=== PATIENT | female | born 1940 | race Caucasian/White ===

== ENCOUNTER 2016-08-29 14:37 | Inpatient (IN) | payer MEDICARE, OTHER ==
--- NOTE | ~2016-08-29 | CN ---
Consultation Report [place] [id number] [facility] [place]. [address] NAME: VIRGEN PEREZ : 39 STATUS : ADM Zohaib PAT#: [id number] AGE: 76 ADM/REG DATE : 08/29/16 MR#: [id number] REPORT SERV DATE: 08/30/16 DICTATED BY: EDDIEMONICATIERRA STRATTON DATE: 08/30/16 REPORT STATUS : Draft TRANSCRIBED BY: MODL DATE: 08/30/16 CONSULTATION REPORT DATE OF CONSULTATION: 08/29/2016 REASON FOR CONSULTATION: Consulted for COPD management. IDENTIFYING DATA: 1. Primary care physician: Justine Nolan M.D. 2. Urologist: Nilo oMntalvo Jr., M.D. 3. Substation Designer: Andrew Garcia M.D. 4. Orthopedist: Aleksey Price II, M.D. 5. Surgeon in the past who did her thyroid surgery: Red Felix M.D. HISTORY OF PRESENT ILLNESS: This is a 76-year-old female admitted by Dr. Andrew Garcia for acute coronary syndrome. The patient has a history of coronary artery disease with previous percutaneous intervention as well as peripheral vascular disease, having a right carotid endarterectomy. She also has a history of hypertension, and hyperlipidemia, and the hospitalist group is presently consulted for COPD management. The patient denies a personal history of having a diagnosis of COPD, even though she does relate that she has episodes of bronchitis. The patient presently is admitted under Cardiology for chest pain. The patient does have expiratory wheezing noted bilaterally, but she denies that she is having any chest pain presently, and she is denying shortness of breath. The patient's history was obtained through interview with the patient and her daughter is well as review of [employer]. PAST MEDICAL HISTORY: 1. Presbyopia. 2. Arthritis. 3. Degenerative disk disease. 4. Anxiety. 5. Depression. 6. Chronic back pain. 7. Peripheral vascular disease. 8. Hypertension. 9. Hyperlipidemia. 10.COPD for which the patient denies. She does have chronic tobacco abuse. 11.Bronchitis. 12.Chest pain. 13.Allergies with sinus congestion. HOME MEDICATIONS: 1. Enteric coated aspirin 81 mg p.o. every morning. Consultation Report [place] [id number] [facility] [place]. [address] NAME: VIRGEN PEREZ : 39 STATUS : ADM Zohaib PAT#: [id number] AGE: 76 ADM/REG DATE : 08/29/16 MR#: [id number] REPORT SERV DATE: 08/30/16 DICTATED BY: MONICA MORGAN DATE: 08/30/16 REPORT STATUS : Draft TRANSCRIBED BY: CLEMENTINE DATE: 08/30/16 2. Celexa 20 mg p.o. daily. 3. Flexeril 10 mg p.o. twice a day. 4. Folic acid 800 mcg p.o. daily. 5. Neurontin 300 mg p.o. three times daily. 6. Everest 5/325 one tablet p.o. every eight hours p.r.n. back pain. 7. Afrin nasal spray, 2 to 3 sprays nasally every 12 hours p.r.n. congestion. 8. Crestor 20 mg p.o. at bedtime. 9. Salonpas patch topically over the counter p.r.n. for back and leg pain. 10.Aspercreme one application topically p.r.n. to hands, leg, and for back pain. ALLERGIES: TO EMILY INHIBITORS WHICH CAUSES HER TO HAVE COUGH. SOCIAL HISTORY: The patient is a smoker, she is still smoking after 30 years, presently one- half pack per day. 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 She lives in a single-level home. No alcohol or illicit drug use. No activity intolerance according to patient. The patient is for 59 years. FAMILY HISTORY: The patient had three brothers, one brother is from an [place], the other brother is alive and well. The patient's family is positive for breast cancer, lung cancer, coronary artery disease. Her mother was from these comorbidities in her 80s. Her father from an aneurysm and had coronary artery disease and at approximately age 8282 years old. The patient has two children alive and well. SURGICAL HISTORY: 1. Bilateral carotid endarterectomy. 2. A cyst removed from her hand. 3. Previous shoulder surgery. 4. Thyroidectomy. 5. PTCI. 6. Intraocular lens implant. 7. Hysterectomy. 8. Bladder sling on 05/19/2009. 9. Echo that was done on 04/2016 with LVEF 45% with a grade 1 diastolic dysfunction. 10.Remote RCA stent. REVIEW OF SYSTEMS: A full 10-point review of systems obtained, pertinent positives are mentioned in the HPI. The patient is presently alert and oriented x3. She has no nausea and vomiting. No abdominal pain. Has no chest pain. Has no fever. Denies shortness of breath. Has no confusion or agitation. PHYSICAL EXAMINATION: VITAL SIGNS: From today, blood pressure 137/63, respiratory rate 18, heart rate 66, temperature 98.6, O2 saturation 93% on room air. GENERAL: The patient is a 76-year-old female, resting in bed, in no acute Consultation Report [place] [id number] [facility] [place]. [address] NAME: VIRGEN PEREZ : 39 STATUS : ADM Zohaib PAT#: [id number] AGE: 76 ADM/REG DATE : 08/29/16 MR#: [id number] REPORT SERV DATE: 08/30/16 DICTATED BY: MONICA MORGAN DATE: 08/30/16 REPORT STATUS : Draft TRANSCRIBED BY: CLEMENTINE DATE: 08/30/16 distress. NEURO: Her head is atraumatic, normocephalic. She awakens for this interview and is alert and oriented x3. Her cranial nerves II to XII are intact. Her mood is pleasant and appropriate. Her daughter is also answering questions as I ask while sitting at bedside. NECK: Supple. Trachea is midline. No JVD. No obvious thyromegaly or lymphadenopathy. EENT: Her sclerae are nonicteric. Pupils are equal and reactive to light. Her nares are patent. Tongue is midline. No deviation. Soft palate rises equally with phonation. CHEST: No pain with palpation. LUNGS: The patient has normal respiratory effort. No increased work of breathing with conversation. She does have bilateral soft expiratory wheezes. CARDIOVASCULAR: S1 and S2. The patient is on telemetry. She displays a sinus rhythm with a left bundle-branch block at a rate of 66. No appreciable murmurs, rubs, or gallops. ABDOMEN: Soft, nontender, with active bowel sounds. Last bowel movement was 08/28/2016. EXTREMITIES: Pulses present. No calf tenderness. No edema. She is presently on a heparin drip for ACS protocol which will cover the DVT prophylaxis. SKIN: Warm and dry. No unusual rashes or lesions. PSYCH: The patient is pleasant, cooperative, appropriate mood and affect. LABORATORY DATA: Sodium is 141, potassium 4.4, chloride 106, creatinine 1.05, GFR 59, glucose 96, calcium is 9.2, magnesium 2.0. White blood cells 7.7, hemoglobin 16.5, hematocrit 47.2, platelets 167. INR 1.0. Troponins have been negative at less than 0.02. On 08/29/2016, the patient had an ECG that showed a normal sinus rhythm with a rate at 85, with a left bundle-branch block, and noted as an abnormal ECG. ASSESSMENT AND PLAN: 1. The hospitalist group was consulted for patient's chronic obstructive pulmonary disease. The patient denies having chronic obstructive pulmonary disease. She states she has occasional bronchitis. She is a smoker of 30 years and still smokes half a pack per day. We will keep O2 to have her sats 92% or greater if needed. We will place her on DuoNeb q.6h p.r.n. for shortness of breath and wheezing. We will obtain a portable chest x-ray in the a.m. 2. Chronic back pain. The patient does have a history of degenerative disk disease. We will continue her Flexeril p.r.n. and she is on Neurontin daily. 3. Hyperlipidemia. Aware. We will keep her on her daily dose of Crestor unless Cardiology changes the regimen. 4. Chronic sinus congestion. Aware. The patient will be placed on [place] nasal spray p.r.n. as needed for dryness and congestion. 5. Chest pain. The patient is admitted per Cardiology for acute coronary syndrome. She is presently on a heparin drip. She will have a cardiac medications maintained and ordered per Cardiology which presently she is on aspirin and Brilinta. 6. A.m. labs will be a portable chest x-ray, CBC, lipid panel, and SGPT is ordered per Cardiology. The hospitalist group would like to thank you for this consultation. Let us know if we can Consultation Report [address] [place]. [address] NAME: VIRGEN PEREZ : 39 STATUS : ADM Zohaib PAT#: [id number] AGE: 76 ADM/REG DATE : 08/29/16 MR#: [id number] REPORT SERV DATE: 08/30/16 DICTATED BY: MONICA MORAGN DATE: 08/30/16 REPORT STATUS : Draft TRANSCRIBED BY: CLEMENTINE DATE: 08/30/16 be of further assistance. /CLEMENTINE Monica Morgan NP / [id number] CC: Peña Mina M.D.
--- NOTE | ~2016-08-29 | OP ---
Record Of Operation [facility] [address] [place]. [address] NAME: VIRGEN PEREZ : 39 STATUS : ADM IN PAT#: [id number] AGE: 76 ADM/REG DATE : 08/30/16 MR#: [id number] REPORT SERV DATE: 09/03/16 DICTATED BY: ROGELIO GARCIA DATE: 09/03/16 REPORT STATUS : Draft TRANSCRIBED BY: MODL DATE: 09/03/16 DATE OF PROCEDURE: 09/03/2016 PROCEDURE: Left heart catheterization, left ventriculography, coronary angiography, rotational ablation of proximal circumflex lesion followed by balloon angioplasty, followed by deployment of 3.0 x 16 Synergy stent (lot #[id number]) in proximal left circumflex artery and 3.0 x 8 synergy stent (lot #[id number]) in ostial left circumflex artery. INDICATIONS: Class 4 angina, jeopardy on myocardial perfusion scan. PROCEDURE NOTE: Informed consent was obtained. The patient was brought to catheterization laboratory in the fasting state with renal prophylaxis protocol initiated and intravenous heparin infusion ongoing. Routine sterile prep and drape was performed. Monitored sedation was administered. 1% Xylocaine with epinephrine was infiltrated to right groin. A 6-Gibraltarian sheath to right femoral artery following anterior wall puncture. A 6-Gibraltarian angled pigtail catheter across the aortic valve without difficulty. Left ventricular pressures were recorded. Left ventriculography in BUTLER projection. Pullback to ascending aorta under pressure recording and catheter was removed. A 6-Gibraltarian JL4 and JR4 diagnostic catheters were used to cannulate coronary artery ostia with angiography of each vessel performed. All catheters were removed. Having identified critical stenosis in the proximal left circumflex artery, the decision to perform angioplasty was made. Intravenous heparin infusion was discontinued and additional heparin was administered to maintain i-STAT activated clotting time in the vicinity of 220 seconds during the procedure. A 6-Gibraltarian JL4 guiding catheter provided adequate engagement of left main coronary artery. Exchange length Asahi soft wire advanced as a bare wire through proximal circumflex stenosis with difficulty. A 2.5 x 15 Emerge balloon catheter could not be delivered to lesion and was withdrawn. A 2.0 x 12 Emerge balloon catheter could not be delivered to lesion and was withdrawn. Transit catheter was advanced over and placed a 0.014 wire, but could not traverse the lesion either. Rotablator floppy wire was advanced as a "paulina wire" through proximal circumflex lesion with difficulty. A 0.014 wire was removed. 1.5 mm rotablator devon was advanced through stenosis at 140,000 revolutions per minute without difficulty. The transit catheter was advanced over the Rota wire and Rota wire exchanged for Asahi soft wire. A 2.0 x 12 Emerge balloon over Asahi wire into proximal circumflex without difficulty and they were inflated to 12 atmospheres pressure momentarily. This balloon was exchanged for 2.5 x 16 Emerge balloon catheter which was delivered to lesion without difficulty and they were inflated to 14 atmospheres of pressure. Optimal angiographic result was observed. Emerge exchanged for 3.0 x 16 Synergy stent which was delivered to lesion without difficulty and deployed at 14 atmospheres of pressure. "Proximal edge shelf" was observed and 3.0 x 8 Synergy stent was delivered to the ostium of the circumflex artery with overlap of the previously deployed stent and this stent was deployed at 14 atmospheres of pressure. Optimal angiographic result was observed following intracoronary nitroglycerin. Angioplasty system was withdrawn. Right common femoral arterial sheath side port angiography was performed followed by ProGlide closure of common femoral puncture site. The patient to recovery area in satisfactory condition, without immediate complication, anticipating administration of Ancef. Record Of Operation [address] [address] NAME: VIRGEN PEREZ : 39 STATUS : ADM IN [facility]#: [id number] AGE: 76 ADM/REG DATE : 08/30/16 MR#: [id number] REPORT SERV DATE: 09/03/16 DICTATED BY: ROGELIO GARCIA DATE: 09/03/16 REPORT STATUS : Draft TRANSCRIBED BY: CLEMENTINE DATE: 09/03/16 TOTAL CONTRAST: 220 mL Isovue-370. TOTAL X-RAY DOSE: 1253 mGy. TOTAL MONITORED SEDATION: 80 minutes. ESTIMATED BLOOD LOSS: 30 mL. HEMODYNAMICS: Central aortic pressure 160/60 mmHg, mean 95 mmHg, left ventricular pressure 160/20 mmHg. LEFT VENTRICULOGRAPHY: In BUTLER left ventriculography, focal hypokinesis of the mid inferior wall seen. All other myocardial segments moved normally. Ejection fraction is estimated to be no lower than 55%. No mitral regurgitation was identified. CORONARIES: 1. Left main coronary artery: Medium caliber, medium length vessel with ostial tapering, but no significant stenosis. 2. LAD: Medium caliber vessel reaching and wrapping around the apex of the heart. Proximal calcification and minimal luminal irregularity was identified. One large diagonal branch is seen. 3. Circumflex: Large caliber, angiographically nondominant vessel giving rise to small ramus intermedius vessel and a large first obtuse marginal branch. Proximal calcification with eccentric 90% stenosis was identified in the proximal AV groove circumflex artery. 4. Right coronary artery: Medium caliber, angiographically dominant vessel terminating as posterior descending and posterolateral arteries. Luminal irregularities was identified in the calcified proximal mid right coronary artery. FINAL IMPRESSION: 1. Systolic hypertension. 2. Minimally elevated left ventricular end-diastolic pressure. 3. Normal LVEF of 55% with segmental wall motion abnormalities as described. 4. No mitral regurgitation. 5. Proximal LAD calcification with luminal irregularity. 6. Proximal and mid right coronary artery calcification with luminal irregularity. 7. Heavily calcified and eccentric 90% proximal AV groove circumflex stenosis, successfully treated with rotational ablation, balloon angioplasty, and finally deployment of 3.0 x 16 Synergy and 3.0 x 8 Synergy stent (everolimus eluting) with reduction in luminal narrowing to 0%. /MODL Rogelio Record Of Operation [address] [place]. [address] NAME: VIRGEN PEREZ : 39 STATUS : ADM IN [facility]#: [id number] AGE: 76 ADM/REG DATE : 08/30/16 MR#: [id number] REPORT SERV DATE: 09/03/16 DICTATED BY: ROGELIO GARCIA DATE: 09/03/16 REPORT STATUS : Draft TRANSCRIBED BY: MODL DATE: 09/03/16 Peña Garcia / [id number] CC: Peña Rajan M.D.
--- NOTE | ~2016-08-29 | DS ---
Discharge Summary [facility] [address] [place]. [address] NAME: VIRGEN PEREZ : 39 STATUS : DIS IN PAT#: [id number] AGE: 76 ADM/REG DATE : 08/30/16 MR#: [id number] REPORT SERV DATE: 09/17/16 DICTATED BY: ANDREW GARCIA DATE: 09/16/16 REPORT STATUS : Draft TRANSCRIBED BY: MODMurray DATE: 09/16/16 Data Collection from hospitalization DISCHARGE DIAGNOSES: 1. Acute coronary syndrome. 2. Chronic obstructive pulmonary disease exacerbation. 3. Hypertension. 4. Tobacco use. 5. Carotid disease. 6. Hypercholesterolemia. 7. Anxiety and depression. 8. Peripheral vascular disease. CONSULTATION: Monica Lewis NP PROCEDURES PERFORMED: 1. Left heart catheterization, left ventriculography, coronary angiography, rotational ablation of proximal circumflex lesion, followed by balloon angioplasty, followed by deployment of 3.0 x 16 synergy stent (lot #[id number]) and proximal left circumflex artery and 3.0 x 8 Synergy stent (lot #[id number]) and ostial left circumflex artery, 09/03/2016. 2. Modified barium swallow study, 09/02/2016. 3. Myocardial perfusion imaging study, 08/30/2016. MEDICATIONS: Halfprin 81 mg every morning, Celexa 20 mg daily, Flexeril 10 mg twice a day, folic acid 800 mcg daily, Neurontin 300 mg three times a day, [place] 5/325 one tablet every eight hours as needed, Combivent two puffs via inhaler daily as needed, Afrin nasal spray two to three sprays nasally every 12 hours as needed, Crestor 20 mg at bedtime, Brilinta 90 mg twice a day, Spiriva one capsule via inhaler daily, Salonpas one application topically as needed, Aspercreme, lidocaine one application topically as needed. CONDITION AT DISCHARGE: Stable. DISPOSITION: The patient was discharged home on a low-sodium, low-cholesterol, cardiac diet with activities as instructed. She would follow up with me, 09/10/[address] Juan Guerrier as instructed. She would have a BMP drawn at my office, 09/05/2016. HOSPITAL COURSE: This is a 76-year-old female, who has a history of coronary artery disease with remote balloon percutaneous coronary intervention. The patient also has treated dyslipidemia and known carotid disease with remote stent. She has ongoing cigarette use, COPD and minimally diminished left ventricular systolic function. She presented to the [facility] emergency room after about 15 minutes of chest pain that occurred at rest. She described a sensation of retrosternal pain without radiation and without accompanying nausea, vomiting, dyspnea, or diaphoresis. This was her first episode of chest pain in many years. She had not had recurrence of chest pain. Her chest pain was compatible with acute coronary syndrome/unstable angina. She was admitted to the hospital at this time for further evaluation and treatment. Discharge Summary [facility] [address] [place]. [address] NAME: VIRGEN PEREZ : 39 STATUS : DIS IN PAT#: [id number] AGE: 76 ADM/REG DATE : 08/30/16 MR#: [id number] REPORT SERV DATE: 09/17/16 DICTATED BY: ANDREW GARCIA DATE: 09/16/16 REPORT STATUS : Draft TRANSCRIBED BY: CLEMENTINE DATE: 09/16/16 Upon admission, IV heparin was continued. This had been started in the emergency room. Serial markers and EKG would be performed. A myocardial perfusion imaging study was requested. She was encouraged to stop smoking. She was seen by Monica Lewis regarding COPD management. The patient denies a personal history of having a diagnosis of COPD, even though she does relate that she has episodes of bronchitis. She does have expiratory wheezing noted bilaterally, but she denied that she was having any chest pain presently and also denied shortness of breath. The patient is a smoker of 30 years and still smokes half a pack per day. She was going to be placed on DuoNeb as needed for shortness of breath and wheezing. She was going to remain on O2 to keep her saturations 92% or greater if needed. Flexeril was continued. She is on daily Neurontin. She has a history of degenerative disk disease. Her daily dose of Crestor was going to be continued. She was placed on [place] nasal spray as needed for dryness and congestion. She was presently on a heparin drip. Her cardiac medications would be continued. Aspirin and Brilinta were being given. A myocardial perfusion imaging study was performed. This demonstrated mild distal inferolateral and apical ischemia. On the , she had no chest pain. She was in a sinus rhythm on telemetry. Nitroglycerin paste was being provided. Blood pressure control was borderline. She had no episodes of shortness of breath or chest pain during the night. Spiriva and Combivent were continued. We encouraged her to stop smoking. On the , she remained in a sinus rhythm. She had no chest pain. Plans were being made for her to undergo cardiac catheterization. Spiriva was stopped. Albuterol was being given as needed. On 09/02/2016, Speech-Language Pathology performed a modified barium swallow study. Aspiration precautions were in place. It was felt that she would need to undergo outpatient pulmonary function studies. DuoNeb was restarted. The following day, she had no chest pain. She was in a sinus rhythm. She was taken to the cardiac parking lot laborer, where she underwent the above-mentioned procedure. She tolerated this well and there were no complications. Discharge planning was performed. On 09/04/2016, she had no new complaints. She was alert and cooperative. Brilinta and aspirin were continued. Discharge instructions were given. Due to her improved and stable condition, she was discharged home with the above stated instructions. Information collected by: Janet Reyes I submit the above information as my discharge summary. TG/CLEMENTINE Andrew Garcia M.D. / [id number] CC: Peña Rajan M.D.
--- NOTE | ~2016-08-29 | HP ---
History And Physical [id number] [place]. [address] NAME: VIRGEN PEREZ : 38 STATUS : ADM Zohaib PAT#: [id number] AGE: 76 ADM/REG DATE : 08/29/16 MR#: [id number] REPORT SERV DATE: 08/30/16 DICTATED BY: ROGELIO GARCIA DATE: 08/30/16 REPORT STATUS : Draft TRANSCRIBED BY: MODMurray DATE: 08/30/16 DATE OF ADMISSION: 08/29/2016 CHIEF COMPLAINT: Chest pain. HISTORY OF PRESENT ILLNESS: 76-year-old woman, followed by Dr. Nolan, known to me from prior care, has history of coronary artery disease with remote balloon PCI only, treated dyslipidemia, known carotid disease with remote stent, ongoing cigarette smoking, COPD, and minimally diminished LV systolic function, presented to [facility] Emergency Room yesterday afternoon after 15 minutes of chest pain occurring at rest. She describes sensation as retrosternal without radiation and without accompanying nausea, vomiting, dyspnea, or diaphoresis. This is her first episode of chest pain in many years. She has not had recurrence of chest pain. Emergency Room workup was unrevealing. PAST MEDICAL HISTORY: 1. CAD - remote balloon PCI (unknown anatomy). 2. Dyslipidemia, treated. 3. Carotid disease - JOANIE stent remotely. 4. Cigarette smoking. 5. COPD. 6. Mildly impaired LV systolic function with 04/2016 echo estimating LVEF of 45%, and grade 1 diastolic dysfunction. 7. Status post remote thyroidectomy. HOME MEDICATIONS: Aspirin 81 mg daily, citalopram 20 mg daily, Crestor 20 mg daily, cyclobenzaprine 10 mg twice a day, famotidine 40 mg daily p.r.n., folic acid 800 mcg daily, gabapentin 900 mg t.i.d., Hydrocodone/APAP 5/325 t.i.d., levocetirizine 5 mg daily, meloxicam 15 mg daily, and Mucinex 1.2 g b.i.d. p.r.n. ALLERGIES: NKDA. SOCIAL HISTORY: The patient is with two children. 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 She smokes a pack of cigarettes a day. She denies alcohol consumption. She drinks two cups of caffeinated coffee daily. FAMILY HISTORY: Father had myocardial infarction in his 50s and of abdominal aortic aneurysm, presumed rupture. Brother had myocardial infarction in his 40s. Another brother had myocardial infarction in his 40s. REVIEW OF SYSTEMS: Chronic cough. PHYSICAL EXAMINATION: VITAL SIGNS: Blood pressure 129/61, respirations 19, temperature 98.1, pulse 65 and regular. NECK: No JVD. No carotid bruits. LUNGS: Diminished breath sounds throughout without rhonchi or wheeze. History And Physical [address] [address] NAME: VIRGEN PEREZ : 38 STATUS : ADM Zohaib PAT#: [id number] AGE: 76 ADM/REG DATE : 08/29/16 MR#: [id number] REPORT SERV DATE: 08/30/16 DICTATED BY: ROGELIO GARCIA DATE: 08/30/16 REPORT STATUS : Draft TRANSCRIBED BY: CLEMENTINE DATE: 08/30/16 CARDIAC: Soft S4, I/ systolic murmur. ABDOMEN: Obese. EXTREMITIES: Warm without edema. LABORATORY DATA: BUN and creatinine are 13 and 1.05, yielding EGFR of 59. Troponin I undetectable x2. White blood cell count 7800, hematocrit 44.2%, and platelets 159,000. EKG: Sinus rhythm at a rate of 66, QRS prolongation to 120 milliseconds, QS complexes V1 through V4 consistent with age indeterminate anterior septal wall myocardial infarction. ASSESSMENT AND PLAN: 1. Chest pain - compatible with acute coronary syndrome/unstable angina. Aspirin and Brilinta have been begun. Continuing IV heparin, commenced in emergency room. Serial markers and EKG. Obtaining pharmacologic myocardial perfusion scan. 2. Chronic obstructive pulmonary disease - defer to Hospitalist. 3. Cigarette smoking - counseled. 4. Hypertension - treated. 5. Carotid disease - noted. 6. History of coronary artery disease - as discussed above. 7. Hypercholesteremia - treated. /MODL Rogelio Garcia M.D. / [id number] CC: Peña Rajan M.D.
[~2016-08-29 14:37] MED LIST: ALLEGRA180 PO; AMOXIL875 MG PO; ASA5GR PO; ASAB PO; ASPERCREME TOP; BEN25 PO; CELEXA20 PO; CRESTOR10 PO; CRESTOR20 MG PO; ENABLEX7.5 PO; FISH OIL1200 MG PO; FLEX PO; FLEXERIL5 MG PO; FOLIC ACID PO; FOSAMAX70 MG PO; ISOPTINSR PO; LEVAQUIN750 MG PO; LEXAPRO10 PO; LIPITOR40 PO; MOBIC15 MG PO; MUCINEX600 MG PO; NEUR600 PO; NORCO1 TA1 PO; OCEAN NAS; P10 PO; P20 PO; PEPCID40 MG PO; ULTRAM50 PO; VERELAN240 MG PO; VITAMIN D31000 UNIT PO; XYZAL5 MG PO; ZESTRIL5 MG PO
[2016-08-29 14:55] LABS: BASOPHILS 0.3 %; BASOPHILS ABSOLUTE 0.02 10/3/uL (0.0-0.16); EOSINOPHILS 2.3 %; EOSINOPHILS ABSOLUTE 0.18 10/3/uL (0.0-0.53); HEMOGLOBIN 16.5 g/dL (12.0-16.0); IMMATURE GRANULOCYTES 0.3 %; IMMATURE GRANULOCYTES ABSOLUTE 0.02 10/3/uL (0.0-0.11); LYMPHOCYTES 35.8 %; LYMPHOCYTES ABSOLUTE 2.76 10/3/uL (0.67-4.30); MEAN CORPUSCULAR HEMOGLOB 32.1 pg (26.0-34.0); MEAN CORPUSCULAR VOLUME 91.8 fL (80-100); MEAN PLATELET VOLUME 10.9 fL (9.2-13.0); MONOCYTES 6.4 %; MONOCYTES ABSOLUTE 0.49 10/3/uL (0.21-1.20); NEUTROPHILS 54.9 %; NEUTROPHILS ABSOLUTE 4.23 10/3/uL (2.02-8.40); PLATELET COUNT 167 10/3/uL (150-400); RBC DISTRIBUTION WIDTH 13.8 % (12.0-16.0); RED CELL COUNT 5.14 10/6/uL (4.0-5.6); WHITE BLOOD CELLS 7.7 10/3/uL (4.5-10.5)
[2016-08-29 14:56] LABS: ER CBC TAT 0 Hrs 04 MinsNP; HEMATOCRIT 47.2 % (36.0-48.0); MANUAL DIFF NO %
[2016-08-29 15:02] LABS: PARTIAL THROMBO TIME 25.2 SEC (22.5-37.2); PROTIME (NOT ORD) 12.8 SEC (12.0-14.5)
[2016-08-29 15:11] LABS: CALCIUM, SERUM 9.2 MG/DL (8.5-10.4); CHEST PAIN PROFILE TAT 0 Hrs 20 Mins; CHLORIDE, SERUM 106 MMOL/L (96-112); CREATININE 1.05 MG/DL (0.55-1.02); GFR AFRICAN AMERICAN 59 ML/MIN (>=60); GFR NON AFRICAN AMERICAN 51 ML/MIN (>=60); POTASSIUM, SERUM 4.4 MMOL/L (3.5-5.3); SODIUM, SERUM 141 MMOL/L (135-148); TROPONIN I <0.02 NG/ML (<0.05)
[2016-08-29 15:13] LABS: BUN (BLOOD UREA NITROGEN) 13 MG/DL (6-23); CO2 (CARBON DIOXIDE) 29 MMOL/L (24-34); GLUCOSE, SERUM 96 MG/DL (60-99)
[2016-08-29] MEDS ORDERED: HALF81 PO (17:51)
[2016-08-29] MEDS ORDERED: CELEXA20 PO (17:52)
[2016-08-29] MEDS ORDERED: NEUR300 PO (17:53)
[2016-08-29] MEDS ORDERED: CRESTOR20 MG PO (17:54)
[2016-08-29] MEDS ORDERED: FLEX PO (17:55)
[2016-08-29] MEDS ORDERED: NORCO1 TA1 PO (17:56)
[2016-08-29] MEDS ORDERED: FOLIC ACID800 MCG PO (17:56)
[2016-08-29] MEDS ORDERED: AFRIN15 NAS (17:58)
[2016-08-29] MEDS ORDERED: [UNRECOGNIZED DRUG - OTHER] TOP (17:59)
[2016-08-29] MEDS ORDERED: LIDOCAINE TOP (18:00)
[2016-08-30 01:09] LABS: BASOPHILS 0.3 %; BASOPHILS ABSOLUTE 0.02 10/3/uL (0.0-0.16); EOSINOPHILS 4.6 %; EOSINOPHILS ABSOLUTE 0.36 10/3/uL (0.0-0.53); HEMATOCRIT 44.2 % (36.0-48.0); HEMOGLOBIN 15.3 g/dL (12.0-16.0); IMMATURE GRANULOCYTES 0.3 %; IMMATURE GRANULOCYTES ABSOLUTE 0.02 10/3/uL (0.0-0.11); LYMPHOCYTES 33.6 %; LYMPHOCYTES ABSOLUTE 2.62 10/3/uL (0.67-4.30); MEAN CORPUS HGB CONC 34.6 g/dL (32.0-36.0); MEAN CORPUSCULAR HEMOGLOB 31.7 pg (26.0-34.0); MEAN CORPUSCULAR VOLUME 91.7 fL (80-100); MEAN PLATELET VOLUME 10.9 fL (9.2-13.0); MONOCYTES 7.6 %; MONOCYTES ABSOLUTE 0.59 10/3/uL (0.21-1.20); NEUTROPHILS 53.6 %; NEUTROPHILS ABSOLUTE 4.19 10/3/uL (2.02-8.40); PLATELET COUNT 159 10/3/uL (150-400); RBC DISTRIBUTION WIDTH 13.8 % (12.0-16.0); RED CELL COUNT 4.82 10/6/uL (4.0-5.6); WHITE BLOOD CELLS 7.8 10/3/uL (4.5-10.5)
[2016-08-30 01:14] LABS: CHOL/HDL RATIO(NOT ORDER) 3.4 (0-5)
[2016-08-30 01:16] LABS: MANUAL DIFF NO %
[2016-08-30 09:11] LABS: BUN (BLOOD UREA NITROGEN) 11 MG/DL (6-23); CHLORIDE, SERUM 110 MMOL/L (96-112); CO2 (CARBON DIOXIDE) 26 MMOL/L (24-34); CREATININE 1.13 MG/DL (0.55-1.02); FREE T4 1.11 NG/DL (0.76-1.46); GFR AFRICAN AMERICAN 54 ML/MIN (>=60); GFR NON AFRICAN AMERICAN 47 ML/MIN (>=60); GLUCOSE, SERUM 107 MG/DL (60-99); POTASSIUM, SERUM 4.2 MMOL/L (3.5-5.3); SODIUM, SERUM 141 MMOL/L (135-148)
[2016-09-01 07:11] LABS: BASOPHILS 0.3 %; BASOPHILS ABSOLUTE 0.02 10/3/uL (0.0-0.16); EOSINOPHILS 3.3 %; EOSINOPHILS ABSOLUTE 0.22 10/3/uL (0.0-0.53); HEMATOCRIT 45.3 % (36.0-48.0); HEMOGLOBIN 15.3 g/dL (12.0-16.0); IMMATURE GRANULOCYTES 0.2 %; IMMATURE GRANULOCYTES ABSOLUTE 0.01 10/3/uL (0.0-0.11); LYMPHOCYTES 25.9 %; LYMPHOCYTES ABSOLUTE 1.71 10/3/uL (0.67-4.30); MEAN CORPUS HGB CONC 33.8 g/dL (32.0-36.0); MEAN CORPUSCULAR HEMOGLOB 31.3 pg (26.0-34.0); MEAN CORPUSCULAR VOLUME 92.6 fL (80-100); MONOCYTES ABSOLUTE 0.53 10/3/uL (0.21-1.20); NEUTROPHILS 62.3 %; PLATELET COUNT 141 10/3/uL (150-400); RBC DISTRIBUTION WIDTH 13.8 % (12.0-16.0); RED CELL COUNT 4.89 10/6/uL (4.0-5.6); WHITE BLOOD CELLS 6.6 10/3/uL (4.5-10.5)
[2016-09-01 07:21] LABS: MANUAL DIFF NO %
[2016-09-01 07:26] LABS: BUN (BLOOD UREA NITROGEN) 9 MG/DL (6-23); CALCIUM, SERUM 8.5 MG/DL (8.5-10.4); CHLORIDE, SERUM 110 MMOL/L (96-112); CO2 (CARBON DIOXIDE) 24 MMOL/L (24-34); CREATININE 0.93 MG/DL (0.55-1.02); GFR AFRICAN AMERICAN 69 ML/MIN (>=60); GFR NON AFRICAN AMERICAN 59 ML/MIN (>=60); GLUCOSE, SERUM 98 MG/DL (60-99); POTASSIUM, SERUM 3.9 MMOL/L (3.5-5.3); SODIUM, SERUM 141 MMOL/L (135-148)
[2016-09-01 19:03] LABS: T PROTEIN (ELECT)(NOT OR 6.2 G/DL (6.0-8.5)
[2016-09-02 07:00] LABS: BUN (BLOOD UREA NITROGEN) 8 MG/DL (6-23); CALCIUM, SERUM 8.7 MG/DL (8.5-10.4); CHLORIDE, SERUM 110 MMOL/L (96-112); CO2 (CARBON DIOXIDE) 22 MMOL/L (24-34); CREATININE 0.96 MG/DL (0.55-1.02); GFR AFRICAN AMERICAN 66 ML/MIN (>=60); GFR NON AFRICAN AMERICAN 57 ML/MIN (>=60); GLUCOSE, SERUM 107 MG/DL (60-99); POTASSIUM, SERUM 4.2 MMOL/L (3.5-5.3); SODIUM, SERUM 140 MMOL/L (135-148)
[2016-09-02 10:29] LABS: A/G 1.65 RATIO (0.9-2.10); ALB RELATIVE % 62.2 % (60.0-89.0); ALBUMIN (ELECTRO) 3.86 GM/DL (3.2-5.5); ALPHA 1 (ELECTRO) 0.21 GM/DL (0.1-0.4); ALPHA 1 RELAT % (NOT ORD) 3.4 % (1.0-4.0); ALPHA 2 (ELECTRO) 0.78 GM/DL (0.5-1.10); ALPHA 2 RELAT % 12.6 % (4.5-26.0); BETA GLOBULIN (SPE) 0.68 GM/DL (0.60-1.30); GAMMA GLOBULIN (SPE) 0.67 G/DL (0.70-1.60); GAMMA RELAT % 10.8 % (6.0-22.0)
[2016-09-03 05:40] LABS: BASOPHILS 0.3 %; BASOPHILS ABSOLUTE 0.02 10/3/uL (0.0-0.16); EOSINOPHILS 3.8 %; EOSINOPHILS ABSOLUTE 0.25 10/3/uL (0.0-0.53); HEMATOCRIT 45.2 % (36.0-48.0); HEMOGLOBIN 15.3 g/dL (12.0-16.0); IMMATURE GRANULOCYTES 0.3 %; IMMATURE GRANULOCYTES ABSOLUTE 0.02 10/3/uL (0.0-0.11); LYMPHOCYTES ABSOLUTE 1.84 10/3/uL (0.67-4.30); MEAN CORPUS HGB CONC 33.8 g/dL (32.0-36.0); MEAN CORPUSCULAR HEMOGLOB 31.4 pg (26.0-34.0); MEAN CORPUSCULAR VOLUME 92.8 fL (80-100); MONOCYTES 8.1 %; MONOCYTES ABSOLUTE 0.53 10/3/uL (0.21-1.20); NEUTROPHILS 59.5 %; PLATELET COUNT 143 10/3/uL (150-400); RBC DISTRIBUTION WIDTH 13.8 % (12.0-16.0); RED CELL COUNT 4.87 10/6/uL (4.0-5.6); WHITE BLOOD CELLS 6.6 10/3/uL (4.5-10.5)
[2016-09-03 05:43] LABS: MANUAL DIFF NO %
[2016-09-03 05:55] LABS: BUN (BLOOD UREA NITROGEN) 8 MG/DL (6-23); CALCIUM, SERUM 8.8 MG/DL (8.5-10.4); CHLORIDE, SERUM 110 MMOL/L (96-112); CO2 (CARBON DIOXIDE) 27 MMOL/L (24-34); CREATININE 0.94 MG/DL (0.55-1.02); GFR AFRICAN AMERICAN 68 ML/MIN (>=60); GFR NON AFRICAN AMERICAN 59 ML/MIN (>=60); GLUCOSE, SERUM 96 MG/DL (60-99); POTASSIUM, SERUM 3.9 MMOL/L (3.5-5.3); SODIUM, SERUM 144 MMOL/L (135-148)
[2016-09-03 10:53] LABS: CPK 60 U/L (0-200)
[2016-09-03 10:54] LABS: CK-MB 0.8 NG/ML
[2016-09-04 03:54] LABS: BASOPHILS 0.1 %; BASOPHILS ABSOLUTE 0.01 10/3/uL (0.0-0.16); EOSINOPHILS 4.1 %; EOSINOPHILS ABSOLUTE 0.29 10/3/uL (0.0-0.53); HEMATOCRIT 44.9 % (36.0-48.0); HEMOGLOBIN 15.5 g/dL (12.0-16.0); IMMATURE GRANULOCYTES 0.1 %; IMMATURE GRANULOCYTES ABSOLUTE 0.01 10/3/uL (0.0-0.11); LYMPHOCYTES 23.5 %; LYMPHOCYTES ABSOLUTE 1.66 10/3/uL (0.67-4.30); MEAN CORPUS HGB CONC 34.5 g/dL (32.0-36.0); MEAN CORPUSCULAR HEMOGLOB 31.8 pg (26.0-34.0); MEAN CORPUSCULAR VOLUME 92.2 fL (80-100); MEAN PLATELET VOLUME 11.3 fL (9.2-13.0); MONOCYTES 7.2 %; MONOCYTES ABSOLUTE 0.51 10/3/uL (0.21-1.20); NEUTROPHILS ABSOLUTE 4.59 10/3/uL (2.02-8.40); PLATELET COUNT 137 10/3/uL (150-400); RBC DISTRIBUTION WIDTH 13.8 % (12.0-16.0); RED CELL COUNT 4.87 10/6/uL (4.0-5.6); WHITE BLOOD CELLS 7.1 10/3/uL (4.5-10.5)
[2016-09-04 03:56] LABS: MANUAL DIFF NO %
[2016-09-04 04:13] LABS: CALCIUM, SERUM 8.9 MG/DL (8.5-10.4); CHLORIDE, SERUM 110 MMOL/L (96-112); CHOL/HDL RATIO(NOT ORDER) 3.1 (0-5); CHOLESTEROL 133 MG/DL (< 200); CO2 (CARBON DIOXIDE) 26 MMOL/L (24-34); CREATININE 1.11 MG/DL (0.55-1.02); GFR AFRICAN AMERICAN 55 ML/MIN (>=60); GFR NON AFRICAN AMERICAN 48 ML/MIN (>=60); GLUCOSE, SERUM 99 MG/DL (60-99); HDL CHOLESTEROL 43 MG/DL (> 49); NON-HDL CHOLESTEROL 90 MG/DL (< 160); POTASSIUM, SERUM 4.1 MMOL/L (3.5-5.3); SODIUM, SERUM 142 MMOL/L (135-148)
[2016-09-04 04:14] LABS: BUN (BLOOD UREA NITROGEN) 15 MG/DL (6-23); CK-MB 2.9 NG/ML; CPK 112 U/L (0-200); LDL CHOLESTEROL 60 MG/DL (< 130); TRIGLYCERIDE 150 MG/DL (< 150)
[2016-09-04] MEDS ORDERED: BRILINTA90 MG PO (10:00)
[2016-09-04] MEDS ORDERED: COMBIVENT RESPIM4 GM INH (10:08)
[2016-09-04] MEDS ORDERED: SPIRIVA INH (10:09)
== END 2016-09-04 10:32 | disposition home or self-care (01) | DRG 247 ==
LOC: ER 14:37 → CDU1 18:33 → CDU2 19:37 → 6NO 08-30 16:22 → SSU1 09-03 09:40
PROVIDERS: Emergency Medicine; Internal Medicine; Internal Medicine Cardiovascular Disease; Nurse Practitioner Family
PROC: 027035Z Dilation of Coronary Artery, One Artery with Two Drug-eluting Intraluminal Devices, Percutaneous Approach (ICD-10-PCS; principal; 2016-09-03)
PROC: 4A023N7 Measurement of Cardiac Sampling and Pressure, Left Heart, Percutaneous Approach (ICD-10-PCS; 2016-09-03)
PROC: B2151ZZ Fluoroscopy of Left Heart using Low Osmolar Contrast (ICD-10-PCS; 2016-09-03)
PROC: B2111ZZ Fluoroscopy of Multiple Coronary Arteries using Low Osmolar Contrast (ICD-10-PCS; 2016-09-03)
DX: I25.110 Atherosclerotic heart disease of native coronary artery with unstable angina pectoris (principal); I50.32 Chronic diastolic (congestive) heart failure; J44.1 Chronic obstructive pulmonary disease with (acute) exacerbation; N18.3 Chronic kidney disease, stage 3 (moderate); I65.29 Occlusion and stenosis of unspecified carotid artery; R13.12 Dysphagia, oropharyngeal phase; E78.5 Hyperlipidemia, unspecified; F17.210 Nicotine dependence, cigarettes, uncomplicated; E78.00 Pure hypercholesterolemia, unspecified; F41.9 Anxiety disorder, unspecified; F32.9 Major depressive disorder, single episode, unspecified; I73.9 Peripheral vascular disease, unspecified; M19.90 Unspecified osteoarthritis, unspecified site; I44.7 Left bundle-branch block, unspecified; J32.9 Chronic sinusitis, unspecified; J42 Unspecified chronic bronchitis; Z95.1 Presence of aortocoronary bypass graft; Z72.89 Other problems related to lifestyle; Z82.49 Family history of ischemic heart disease and other diseases of the circulatory system; Z98.890 Other specified postprocedural states
CPT/HCPCS: 71010; 71020; 74230; 78452; 80048; 80061; 82550; 82553; 82607; 83735; 84155; 84165; 84439; 84443; 84460; 84481; 84484; 85025; 85347; 85610; 85730; 92611-GN; 93005; 93017; 93458; 94640; 99152; 99153; 99285; A9270-GY; A9502; C1724; C1725; C1760; C1769; C1874; C1887; C1894; C9602; G8996-CI-GN; G8997-CI-GN; G8998-CI-GN; J0153; J0690; J2250; J2405; J3010; Q9967